=== PATIENT | female | born 1955 | race Caucasian/White ===

== ENCOUNTER 2018-05-12 18:33 | Inpatient (IN) | payer MEDICARE, BC ==
[~2018-05-12] VITALS: Ht 152.4 cm; Wt 43.7 kg
[2018-05-12] MEDS ORDERED: IV NORMAL SALINE 500 ML BAG IV ONE (19:00)
[2018-05-12] MEDS ORDERED: PROT946L GT (19:02)
[2018-05-12] MEDS ORDERED: ASCO500T10 GT (19:02)
[2018-05-12] MEDS ORDERED: ACET-2154 GT (19:02)
[2018-05-12] MEDS ORDERED: CITA10TA17 GT (19:02)
[2018-05-12] MEDS ORDERED: OXYC-128 GT (19:02)
[2018-05-12] MEDS ORDERED: INSU100I19 SQ (19:02)
[2018-05-12] MEDS ORDERED: CALC0.5C11 GT (19:02)
[2018-05-12] MEDS ORDERED: HEPA500034 SQ ×2 (19:02→20:47)
[2018-05-12] MEDS ORDERED: HYDR100T27 GT (19:02)
[2018-05-12] MEDS ORDERED: ZINC220C8 GT (19:02)
[2018-05-12] MEDS ORDERED: ATOR80TA GT (19:02)
[2018-05-12] MEDS ORDERED: VIT1TABL46 GT (19:02)
[2018-05-12] MEDS ORDERED: CALC-494 GT (19:02)
[2018-05-12] MEDS ORDERED: DOCU50LI GT (19:02)
[2018-05-12] MEDS ORDERED: LANS30CA56 GT (19:02)
[2018-05-12] MEDS ORDERED: BALS5OIN TP (19:02)
[2018-05-12] MEDS ORDERED: AMLO10TA7 GT (19:02)
--- NOTE | 2018-05-12 19:03 | NUR ---
PT IS IN ROOM #1B. DR STONER EVALUATED THE PT.
--- NOTE | 2018-05-12 19:04 | NUR ---
Dr. North speaking with Dr. Pham. Pt accepted for admission to [facility], diagnosis: severe anemia and renal failure.
[2018-05-12 19:13] LABS: BASOPHILS # (AUTO) 0.1 K/uL (0.0-8.0); EOSINOPHILS # (AUTO) 0.1 K/uL (0.0-0.7); EOSINOPHILS % (AUTO) 0.4 % (0.0-7.0); PLATELET COUNT (AUTO) 311 K/uL (179-408)
[2018-05-12 19:14] LABS: CREATININE 2.1 mg/dL (0.6-1.3); POTASSIUM 3.5 mmol/L (3.5-5.1)
[2018-05-12 19:15] LABS: BASOPHILS % (AUTO) 0.5 % (0.0-2.0); LYMPHOCYTES # (AUTO) 0.5 K/uL (20.0-40.0); MEAN CORPUSCULAR HEMOGLOBIN 29.9 uug (24.7-32.8); MEAN CORPUSCULAR HGB CONC 33 g/dL (32.3-35.6); MEAN CORPUSCULAR VOLUME 91.3 fL (75.5-95.3); MONOCYTES # (AUTO) 1.2 K/uL (2.0-10.0); MONOCYTES % (AUTO) 6.5 % (0.0-11.0); NEUTROPHILS # (AUTO) 16.3 K/uL (1.8-8.9); NEUTROPHILS % (AUTO) 89.6 % (38.5-71.5); WHITE BLOOD COUNT (AUTO) 18.2 K/uL (3.8-11.8)
[2018-05-12 19:19] LABS: BILIRUBIN,DIRECT 0.1 mg/dL (0.0-0.2); BILIRUBIN,TOTAL 0.3 mg/dL (0.2-1.0); TOTAL PROTEIN, SERUM 6.6 g/dL (6.4-8.2)
[2018-05-12 19:20] LABS: RED BLOOD CELL COUNT(AUTO) 2.22 MIL/uL (3.63-4.92)
[2018-05-12 19:21] LABS: HEMATOCRIT 20.3 % (31.2-41.9); HEMOGLOBIN 6.7 g/dL (10.9-14.3)
[2018-05-12 19:40] LABS: BAND % (MANUAL) 4 % (0-10); NEUTROPHILS % (MANUAL) 91 % (42-75)
[2018-05-12 19:41] LABS: LYMPHOCYTES % (MANUAL) 2 % (20-40); MONOCYTES % (MANUAL) 3 % (2-10)
--- NOTE | 2018-05-12 19:45 | NUR ---
Report given to Princess LYLE Tele.
[2018-05-12 20:15] VITALS: BP 115/49
[2018-05-12] MEDS ORDERED: OXYCODONE/APAP 5-325 MG TABLET GT PRN (20:30)
[2018-05-12] MEDS ORDERED: DOCUSATE SODIUM 100 MG/10 ML LIQUID UDC GT PRN (20:30)
--- NOTE | 2018-05-12 20:30 | NUR ---
RECEIVED PT FROM ER [facility]IA [facility]. DX:SEVERE ANEMIA/ RENAL FAILURE. UNDER THE CARE OF DR. PÉREZ. PT SHOWS NO SIGNS OF ACUTE DISTRESS. BELONGING LIST DONE. ADMISSION PROCESS AND CARE PLAN INITIATED. SENIOR CARE ASSESSMENT DONE. SAFETY AND COMFORT PROVIDED. WILL CONTINUE TO MONITOR.
[2018-05-12] MEDS ORDERED: OXYCODONE/APAP 5-325 MG TABLET PO PRN (20:45)
[2018-05-12] MEDS ORDERED: Medication Not On Formulary EA (Atorvastatin Calcium (Lipitor) 80 MG) GT SCH (21:00)
[2018-05-12] MEDS: ZINC SULFATE 220 MG CAPSULE GT SCH (21:54)
[2018-05-12] MEDS: ATORVASTATIN 40 MG TABLET GT SCH (21:54)
[2018-05-12] MEDS: hydrALAZINE HCL 50 MG TABLET GT SCH (21:54)
[2018-05-12] MEDS: HEPARIN SODIUM,PORCINE 5,000 UNITS/ML VIAL SQ SCH (21:58)
[2018-05-12] MEDS: INSULIN GLARGINE,HUM 300 UNITS/3 ML CARTRIDGE SQ SCH (22:08)
[2018-05-12] MEDS: NEPRO 1000 ML GT PRN (23:04)
[2018-05-12 23:56] VITALS: BP 111/40
[2018-05-13] VITALS (9 sets, daily range): BP systolic 112–124; BP diastolic 30–54
[2018-05-13] MEDS: hydrALAZINE HCL 50 MG TABLET GT SCH ×3 (05:43→22:00)
--- NOTE | 2018-05-13 06:17 | NUR ---
PT SLEPT THROUGHOUT THE SHIFT. PT SHOWS NO SIGNS OF DISTRESS. PT TOLERATED BLOOD TRANSFUSION. NO ADVERSE REACTION. PRESCRIBED MEDICATION GIVEN AND PT TOLERATED IT WELL. IV INTACT.G-TUBE FEEDING ONGOING AND PT TOLERATED IT WELL. PT TURNED AND REPOSITIONED. SAFETY AND COMFORT PROVIDED. WILL ENDORSE ACCORDINGLY TO INCOMING NURSE FOR CONTINUITY OF CARE.
[2018-05-13 06:34] LABS: BASOPHILS # (AUTO) 0.1 K/uL (0.0-8.0); BASOPHILS % (AUTO) 0.4 % (0.0-2.0); EOSINOPHILS # (AUTO) 0.1 K/uL (0.0-0.7); EOSINOPHILS % (AUTO) 0.4 % (0.0-7.0); HEMATOCRIT 24.3 % (31.2-41.9); HEMOGLOBIN 7.9 g/dL (10.9-14.3); LYMPHOCYTES # (AUTO) 0.5 K/uL (20.0-40.0); LYMPHOCYTES % (AUTO) 2.8 % (20.5-51.5); MEAN CORPUSCULAR HEMOGLOBIN 29.3 uug (24.7-32.8); MEAN CORPUSCULAR HGB CONC 33 g/dL (32.3-35.6); MEAN CORPUSCULAR VOLUME 89.8 fL (75.5-95.3); MONOCYTES # (AUTO) 0.9 K/uL (2.0-10.0); MONOCYTES % (AUTO) 5.4 % (0.0-11.0); NEUTROPHILS # (AUTO) 14.9 K/uL (1.8-8.9); PLATELET COUNT (AUTO) 297 K/uL (179-408); WHITE BLOOD COUNT (AUTO) 16.4 K/uL (3.8-11.8)
--- NOTE | 2018-05-13 07:00 | NUR ---
PATIENT IS SLEEPING IN BED, SHOWS NO SIGNS OF DISTRESS. IV INTACT.G-TUBE FEEDING IS OFF AT THE MOMENT. SAFETY AND COMFORT REINFORCED.
--- NOTE | 2018-05-13 07:42 | NUR ---
WOUND CARE CONSULT WOUND CARE RECEIVED CONSULT FOR EXISTING SACRAL WOUND. WOUND CARE WILL DEFER CONSULT AND TREATMENT PLANS TO PLASTIC SURGICAL TEAM WHO HAVE BEEN NOTIFIED OF THE CONSULT. PATIENT WITH EDNA AT 12, ALL PRESSURE ULCER PREVENTION MEASURES ARE NOTED TO BE IN PLACE AT THIS TIME. WILL SEE PRN.
[2018-05-13] MEDS ORDERED: Z GUARD REMEDY PASTE 57 GM TUBE TOP PRN (08:00)
[2018-05-13] MEDS ORDERED: Medication Not On Formulary EA (Protein Supplement (Promod) 30 ML) GT SCH (09:00)
[2018-05-13] MEDS ORDERED: Medication Not On Formulary EA (Calcitriol 0.5 MCG) GT SCH (09:00)
[2018-05-13] MEDS: AMLODIPINE 10 MG TABLET GT SCH (09:00)
[2018-05-13] MEDS ORDERED: EPOETIN ALFA 10,000 UNITS/ML VIAL IVP ONE (09:00)
[2018-05-13] MEDS ORDERED: Medication Not On Formulary EA (Lansoprazole 30 MG) GT SCH (09:00)
[2018-05-13] MEDS ORDERED: Medication Not On Formulary EA (Vit B Cmplx 3/Fa/Vit C/Biotin (Rena-Vite Rx Tablet) 1 EA GT SCH (09:00)
[2018-05-13] MEDS: CALCIUM CARBONATE 500 MG TABLET GT SCH (10:04)
[2018-05-13] MEDS: FOLIC ACID/VITAMIN B COMP W-C TABLET GT SCH (10:05)
[2018-05-13] MEDS: ASCORBIC ACID 500 MG TABLET GT SCH (10:05)
[2018-05-13] MEDS: PANTOPRAZOLE ORAL SUSPENSION 40 MG SUSPDR.PKT GT SCH (10:05)
[2018-05-13] MEDS: ZINC SULFATE 220 MG CAPSULE GT SCH ×2 (10:05→20:32)
[2018-05-13] MEDS: CITALOPRAM 10 MG TABLET GT SCH (10:06)
[2018-05-13] MEDS: PROTEIN SUPPLEMENT (PROSTAT) 30 ML LIQUID GT SCH ×3 (10:07→17:22)
[2018-05-13] MEDS: HEPARIN SODIUM,PORCINE 5,000 UNITS/ML VIAL SQ SCH ×2 (10:13→20:46)
[2018-05-13] MEDS: Z GUARD REMEDY PASTE 57 GM TUBE TOP SCH (10:17)
[2018-05-13] MEDS: CALCITRIOL 0.25 MCG CAPSULE GT SCH (10:34)
--- NOTE | 2018-05-13 13:38 | NUR ---
PATIENT HAD DIALYSIS THIS AM WITH OUTPUT 1500ML, TOLERATED WELL , NO DISTRESS, BP MEDICATION WAS HELD IN THE AM COLOSTOMY BAG IS CHANGED, SKIN CARE PROVIDED.
[2018-05-13] MEDS: ACETAMINOPHEN 325 MG TABLET GT PRN (18:32)
--- NOTE | 2018-05-13 18:59 | NUR ---
PATIENT IS RESTING IN BED, SKIN CARE ONE , MATRASS IN PLACE, WOUND COVERED AND CLEAN , TUBE FEEDING AT 55/HR IS GOING RIGHT NOW, GTUBE INTACT AND FLASHED TODAY W/O ANY RESIDUAL, LOW GRADE FEVER TREATED W/ TYLENOL SAFETY MAINTAINED
--- NOTE | 2018-05-13 19:30 | NUR ---
ALERT AWAKE, NO SOB NO CHEST PAIN, NO COMPLAIN OF PAIN AT THIS TIME. TX CONTINUE WOUNDS, COLOSTOMY BAG DRAINING WITH YELLOW SOFT BM WITH SOME GAS NOTED, PATIENT ANURIC, L THIGH CATH DRESSING INTACT. HOB ELEVATED, GTF TOLERATE WELL, NO RESIDUAL NOTED. TURN AND REPOSITION, KEPT COMFORTABLE.
[2018-05-13] MEDS: INSULIN GLARGINE,HUM 300 UNITS/3 ML CARTRIDGE SQ SCH (20:31)
[2018-05-13] MEDS: ATORVASTATIN 40 MG TABLET GT SCH (20:32)
[2018-05-14 00:09] VITALS: BP 126/53
[2018-05-14] MEDS: NEPRO 1000 ML GT PRN (00:12)
[2018-05-14] MEDS: hydrALAZINE HCL 50 MG TABLET GT SCH ×3 (05:04→21:38)
[2018-05-14 06:44] LABS: BASOPHILS % (AUTO) 0.2 % (0.0-2.0); EOSINOPHILS % (AUTO) 0.2 % (0.0-7.0); HEMATOCRIT 26.8 % (31.2-41.9); HEMOGLOBIN 8.7 g/dL (10.9-14.3); LYMPHOCYTES # (AUTO) 0.5 K/uL (20.0-40.0); LYMPHOCYTES % (AUTO) 3.4 % (20.5-51.5); MEAN CORPUSCULAR HEMOGLOBIN 29.3 uug (24.7-32.8); MEAN CORPUSCULAR HGB CONC 33 g/dL (32.3-35.6); MEAN CORPUSCULAR VOLUME 89.8 fL (75.5-95.3); MONOCYTES # (AUTO) 1.1 K/uL (2.0-10.0); MONOCYTES % (AUTO) 7.1 % (0.0-11.0); NEUTROPHILS # (AUTO) 13.5 K/uL (1.8-8.9); NEUTROPHILS % (AUTO) 89.1 % (38.5-71.5); PLATELET COUNT (AUTO) 315 K/uL (179-408); RED BLOOD CELL COUNT(AUTO) 2.98 MIL/uL (3.63-4.92); WHITE BLOOD COUNT (AUTO) 15.2 K/uL (3.8-11.8)
[2018-05-14 06:55] LABS: CREATININE 1.9 mg/dL (0.6-1.3); MAGNESIUM 1.8 mg/dL (1.8-2.4); PHOSPHOROUS 1.4 mg/dL (2.5-4.9); POTASSIUM 4.1 mmol/L (3.5-5.1)
--- NOTE | 2018-05-14 07:07 | NUR ---
PLACE A CALL TO DR. NICOLE REGARDING ABNORMAL GLUCOSE LEVEL OF 308. LEFT A MESSAGE, ENDORSED TO NEXT SHIFT. PATIENT HOB ELEVATED NO SOB NO CHEST PAIN TURN AND REPOSITION, COLOSTOMY BAG PATENT DRAINING WITH SOFT YELLOW COLOR FECES, R THIGH CATHETER DRESSING INTACT, TX DONE ON SACRUM WOUND. NO COMPLAIN OF PAIN AT THIS TIME. KEPT COMFORTABLE.
[2018-05-14 08:00] VITALS: BP 128/61
--- NOTE | 2018-05-14 08:38 | NUR ---
Received a telephone order from Dr. Francis for Accu checks Q6hrs with mild sliding scale. Order carried out.
[2018-05-14] MEDS ORDERED: DEXTROSE 50% 50 ML DISP.SYRIN IV PRN ×2 (08:45)
[2018-05-14] MEDS ORDERED: INSULIN REGULAR, HUMAN 300 UNIT/3 ML VIAL SQ PRN (08:45)
[2018-05-14] MEDS: FOLIC ACID/VITAMIN B COMP W-C TABLET GT SCH (09:05)
[2018-05-14] MEDS: ZINC SULFATE 220 MG CAPSULE GT SCH ×2 (09:05→20:31)
[2018-05-14] MEDS: CITALOPRAM 10 MG TABLET GT SCH (09:05)
[2018-05-14] MEDS: ASCORBIC ACID 500 MG TABLET GT SCH (09:06)
[2018-05-14] MEDS: AMLODIPINE 10 MG TABLET GT SCH (09:06)
[2018-05-14] MEDS: CALCIUM CARBONATE 500 MG TABLET GT SCH (09:06)
[2018-05-14] MEDS: CALCITRIOL 0.25 MCG CAPSULE GT SCH (09:07)
[2018-05-14] MEDS: PANTOPRAZOLE ORAL SUSPENSION 40 MG SUSPDR.PKT GT SCH (09:07)
[2018-05-14] MEDS: Z GUARD REMEDY PASTE 57 GM TUBE TOP SCH (09:08)
[2018-05-14] MEDS: HEPARIN SODIUM,PORCINE 5,000 UNITS/ML VIAL SQ SCH ×2 (09:12→20:33)
[2018-05-14] MEDS: PROTEIN SUPPLEMENT (PROSTAT) 30 ML LIQUID GT SCH ×3 (09:26→16:44)
--- NOTE | 2018-05-14 09:45 | NUR ---
Patient is in bed, low grade fever, respiration rate is increased. G-tube feeding is at 55ml/hr, tolerating well with no residual. Comfort and safety provided, will continue to monitor.
[2018-05-14] MEDS ORDERED: BLOOD SUGAR DIAGNOSTIC 1 EACH STRIP VI SCH (11:30)
[2018-05-14 12:00] VITALS: BP 117/49
[2018-05-14] MEDS: BLOOD SUGAR DIAGNOSTIC 1 EACH STRIP VI SCH ×2 (12:59→18:23)
[2018-05-14] MEDS: INSULIN REGULAR, HUMAN 300 UNIT/3 ML VIAL SQ PRN ×2 (13:25→18:25)
[2018-05-14] MEDS ORDERED: NEUTRA PHOS PACKET GT ONE (15:15)
[2018-05-14 16:36] VITALS: BP 120/59
[2018-05-14 20:00] VITALS: BP 120/43
[2018-05-14] MEDS: ATORVASTATIN 40 MG TABLET GT SCH (20:32)
[2018-05-14] MEDS: ACETAMINOPHEN 325 MG TABLET GT PRN (20:32)
[2018-05-14] MEDS: INSULIN GLARGINE,HUM 300 UNITS/3 ML CARTRIDGE SQ SCH (20:35)
[2018-05-14 21:00] VITALS: BP 120/49
[2018-05-14] MEDS ORDERED: VANCOMYCIN IV 200 ML IV SCH (21:00)
[2018-05-14] MEDS ORDERED: MEROPENEM 500 MG in IV NORMAL SALINE 50 ML IV SCH (21:00)
[2018-05-14] MEDS ORDERED: MEROPENEM 500 MG VIAL IV ONE (21:43)
[2018-05-15] VITALS: BP 129/42
[2018-05-15] MEDS: BLOOD SUGAR DIAGNOSTIC 1 EACH STRIP VI SCH ×4 (00:10→12:38)
[2018-05-15] MEDS: INSULIN REGULAR, HUMAN 300 UNIT/3 ML VIAL SQ PRN ×2 (00:14→06:20)
--- NOTE | 2018-05-15 00:30 | NUR ---
Patient was started on empiric meropenem and vanco IV, by the [employer] APPRAISER. Fever is controlled with tylenol. Was put o 2L O2 via NC due to SpO2 below 90%Colostomy bag was changed, 50-100ml of liquid stool, stoma looks healthy, wound care was done on the sacrum, repositioned, linen changed, tolerated well. Sleeps intermittently. Comfort and safety provided. Continuing to monitor.
[2018-05-15] MEDS ORDERED: VANCOMYCIN IV 1 G in PREMIXED 0 EACH IV ONE (02:00)
[2018-05-15] MEDS ORDERED: VANCOMYCIN IV 200 ML ONE (02:35)
[2018-05-15 04:00] VITALS: BP 152/51
[2018-05-15] MEDS: hydrALAZINE HCL 50 MG TABLET GT SCH ×3 (06:03→21:07)
--- NOTE | 2018-05-15 06:48 | NUR ---
patient did not sleep most of the night. Complained of ankle pain around 0630, repositioned, and changed linens. Denies pain now. No BM and no urine output at this time. No residual from G-tube. Feeding is on hold from 0600 until 1000. New IV is on the right hand, left shoulder IV was removed due to poor performance.
[2018-05-15] MEDS: Z GUARD REMEDY PASTE 57 GM TUBE TOP SCH (09:00)
--- NOTE | 2018-05-15 09:00 | NUR ---
currently under dialysis will give am meds when dialysis complete
--- NOTE | 2018-05-15 09:45 | NUR ---
CLINICAL PHARMACY NOTE: VANCOMYCIN PHARMACY TO DOSE Subjective: To start vancomycin in this 62y/o female for indication of "documented infection" (no md note yet) Objective: weight 42kg height 152cm BMI 18 BUN 58 (05/14) Scr 1.9 (05/14, on HD) 15.2 (05/14) temp 98.5 1gm x 1 vanco given in ER today 05/15 @ 0239 Assessment/Plan Patient is on HD, will follow HD schedule to dose accordingly. As one dose already given for today, no further dose will be given. Next pre-HD level will be tomorrow morning in the case there is dialysis later in day. Will dose accordingly. Will follow
[2018-05-15] MEDS: CITALOPRAM 10 MG TABLET GT SCH (11:17)
[2018-05-15] MEDS: FOLIC ACID/VITAMIN B COMP W-C TABLET GT SCH (11:17)
[2018-05-15] MEDS: AMLODIPINE 10 MG TABLET GT SCH (11:18)
[2018-05-15] MEDS: CALCIUM CARBONATE 500 MG TABLET GT SCH (11:18)
[2018-05-15] MEDS: PANTOPRAZOLE ORAL SUSPENSION 40 MG SUSPDR.PKT GT SCH (11:18)
[2018-05-15] MEDS: CALCITRIOL 0.25 MCG CAPSULE GT SCH (11:19)
[2018-05-15] MEDS: ZINC SULFATE 220 MG CAPSULE GT SCH ×2 (11:19→20:49)
[2018-05-15] MEDS: ASCORBIC ACID 500 MG TABLET GT SCH (11:19)
[2018-05-15] MEDS: MEROPENEM 500 MG in IV NORMAL SALINE 50 ML IV SCH ×2 (11:20→20:49)
[2018-05-15] MEDS: HEPARIN SODIUM,PORCINE 5,000 UNITS/ML VIAL SQ SCH ×2 (11:21→21:02)
[2018-05-15] MEDS: PROTEIN SUPPLEMENT (PROSTAT) 30 ML LIQUID GT SCH ×3 (11:24→16:52)
[2018-05-15 11:39] VITALS: BP 110/70
[2018-05-15 15:10] VITALS: BP 146/55
--- NOTE | 2018-05-15 19:38 | NUR ---
Received patient awake in bed, not in any form of distress. Patient has oxygen support at 2lpm via nasal cannula, tolerated. With g-tube to ongoing feeding, no residuals noted. With colostomy bag, in place. Noted with IV access on the right forearm, 20g, patent and intact. Patient has a reynold catheter on the left groin with dressing, clean and dry. Noted air mattress and SCD foot pumps in place, maintained. Head of bed maintained at 30degrees elevation, locked, side rails up x 2. Ensured safety and comfort. Noise and lights subdued. Will continue to monitor.
[2018-05-15] MEDS: ATORVASTATIN 40 MG TABLET GT SCH (20:49)
[2018-05-15 20:51] VITALS: BP 144/59
[2018-05-15] MEDS: INSULIN GLARGINE,HUM 300 UNITS/3 ML CARTRIDGE SQ SCH (21:03)
[2018-05-16] MEDS: BLOOD SUGAR DIAGNOSTIC 1 EACH STRIP VI SCH ×4 (00:02→17:22)
[2018-05-16 00:29] VITALS: BP 147/61
[2018-05-16 05:15] VITALS: BP 129/49
[2018-05-16] MEDS: hydrALAZINE HCL 50 MG TABLET GT SCH ×3 (05:24→21:13)
[2018-05-16] MEDS: INSULIN REGULAR, HUMAN 300 UNIT/3 ML VIAL SQ PRN ×2 (05:31→17:27)
--- NOTE | 2018-05-16 06:18 | NUR ---
Patient slept intermittently throughout the night. Patient still with oxygen support at 2lpm via nasal cannula, tolerated. With g-tube to ongoing feeding, no residuals noted. With colostomy bag, in place, intact. Noted with IV access on the right forearm, 20g, patent and intact. Patient has a permacatheter on the left groin with dressing, clean and dry. Noted air mattress and SCD foot pumps in place, maintained. Head of bed maintained at 30degrees elevation. Ensured safety and comfort.
[2018-05-16 06:41] LABS: BASOPHILS # (AUTO) 0.1 K/uL (0.0-8.0); BASOPHILS % (AUTO) 0.6 % (0.0-2.0); EOSINOPHILS # (AUTO) 0.1 K/uL (0.0-0.7); HEMATOCRIT 26.4 % (31.2-41.9); HEMOGLOBIN 8.4 g/dL (10.9-14.3); LYMPHOCYTES # (AUTO) 0.4 K/uL (20.0-40.0); MEAN CORPUSCULAR HGB CONC 32 g/dL (32.3-35.6); MEAN CORPUSCULAR VOLUME 91.6 fL (75.5-95.3); MONOCYTES # (AUTO) 0.9 K/uL (2.0-10.0); MONOCYTES % (AUTO) 7.3 % (0.0-11.0); NEUTROPHILS # (AUTO) 10.9 K/uL (1.8-8.9); NEUTROPHILS % (AUTO) 88.1 % (38.5-71.5); PLATELET COUNT (AUTO) 292 K/uL (179-408); RED BLOOD CELL COUNT(AUTO) 2.88 MIL/uL (3.63-4.92); WHITE BLOOD COUNT (AUTO) 12.4 K/uL (3.8-11.8)
[2018-05-16 07:04] LABS: BILIRUBIN,TOTAL 0.3 mg/dL (0.2-1.0); MAGNESIUM 1.8 mg/dL (1.8-2.4); PHOSPHOROUS 1.6 mg/dL (2.5-4.9); TOTAL PROTEIN, SERUM 6.5 g/dL (6.4-8.2); VANCOMYCIN,RANDOM 16.2 ug/mL (18.0-26.0)
[2018-05-16] MEDS: ZINC SULFATE 220 MG CAPSULE GT SCH ×2 (08:24→20:54)
[2018-05-16] MEDS: PANTOPRAZOLE ORAL SUSPENSION 40 MG SUSPDR.PKT GT SCH (08:24)
[2018-05-16] MEDS: FOLIC ACID/VITAMIN B COMP W-C TABLET GT SCH (08:24)
[2018-05-16] MEDS: CITALOPRAM 10 MG TABLET GT SCH (08:24)
[2018-05-16] MEDS: CALCIUM CARBONATE 500 MG TABLET GT SCH (08:25)
[2018-05-16] MEDS: ASCORBIC ACID 500 MG TABLET GT SCH (08:25)
[2018-05-16] MEDS: CALCITRIOL 0.25 MCG CAPSULE GT SCH (08:25)
[2018-05-16] MEDS: HEPARIN SODIUM,PORCINE 5,000 UNITS/ML VIAL SQ SCH ×2 (08:28→20:58)
[2018-05-16] MEDS: Z GUARD REMEDY PASTE 57 GM TUBE TOP SCH (08:28)
[2018-05-16] MEDS: PROTEIN SUPPLEMENT (PROSTAT) 30 ML LIQUID GT SCH ×3 (08:28→17:20)
[2018-05-16] MEDS: AMLODIPINE 10 MG TABLET GT SCH (08:29)
[2018-05-16] MEDS: MEROPENEM 500 MG in IV NORMAL SALINE 50 ML IV SCH ×2 (09:11→20:54)
--- NOTE | 2018-05-16 09:45 | NUR ---
[facility] MANAGER HERE AND STATED THAT SHE WANTS TO DO A DEBRIDEMENT ON THE PATIENT AND NEEDED A CONSCENT PATIENT IS UNABLE TO SIGN SO I CALLED THE PATIENTS SON JAKE AND HIS JENI UNABLE TO REACH ANYONE ON THE PHONE LEFT A MESSAGE AWAITING FOR RETURN CALL.
--- NOTE | 2018-05-16 11:11 | NUR ---
CLINICAL PHARMACY NOTE: VANCOMYCIN PHARMACY TO DOSE Subjective: To continue vancomycin in this 62y/o female for indication of "documented infection" (Leukocytosis- MD note in draft) Objective: weight 42kg height 152cm BMI 18 BUN 48 Scr 2.0 (on HD) WBC 12.4 temp 98.6 Assessment/Plan Patient is on HD, will follow HD schedule to dose accordingly. NO HD as has been scheduled for today per dialysis nurse, thus, no dose shall be due today. Will continue to dose as per pre-HD level. Will follow
--- NOTE | 2018-05-16 11:30 | NUR ---
PATIENTS DAUGHTER IN LAW RETURNED CALL AND GAVE CONSCENT FOR THE DEBRIDEMENT WITHNESSED BY TWO NURSES AND DOCUMENTED.
[2018-05-16 12:00] VITALS: BP 115/51
[2018-05-16] MEDS: ACETAMINOPHEN 325 MG TABLET GT PRN (13:54)
--- NOTE | 2018-05-16 14:00 | NUR ---
NOTED RESTLESSNESS AND FACIAL GRIMACING MEDICATED WITH TYLENOL TURNED AND REPOSITIONED NAD MADE COMFORTABLE WILL CONTINUE TO OBSERVE PATIENT.
[2018-05-16] MEDS: NEPRO 1000 ML GT PRN (14:13)
[2018-05-16] MEDS ORDERED: NEUTRA PHOS PACKET PO ONE (15:15)
[2018-05-16 16:16] VITALS: BP 120/47
--- NOTE | 2018-05-16 17:00 | NUR ---
PATIENT SEEN AND EXAMINED BY DR ADAMSON WITH NEW ORDERS AND NOTED
[2018-05-16 19:44] VITALS: BP 102/43
--- NOTE | 2018-05-16 19:45 | NUR ---
PATIENT AWAKE NO SOB NO CHEST PAIN, HOB ELEVATED, ON 3LPM NC OXYGEN, SAT WNL, ON GTF TOLERATE WELL NO NAUSEA NO VOMITING, NO RESIDUAL. TURN AND REPOSITION Q 2 HOURS, COLOSTOMY BAG DRAINING WITH SOFT YELLOW COLOR FECES IN MODERATE AMOUNT. PATIENT HAS NO COMPLAIN OF PAIN AT THIS TIME. CONT TO MONITOR.
[2018-05-16] MEDS: ATORVASTATIN 40 MG TABLET GT SCH (20:54)
[2018-05-16] MEDS: INSULIN GLARGINE,HUM 300 UNITS/3 ML CARTRIDGE SQ SCH (21:12)
[2018-05-17] MEDS: BLOOD SUGAR DIAGNOSTIC 1 EACH STRIP VI SCH ×4 (00:26→17:56)
[2018-05-17] MEDS: INSULIN REGULAR, HUMAN 300 UNIT/3 ML VIAL SQ PRN ×2 (00:33→05:58)
[2018-05-17 04:30] VITALS: BP 155/54
[2018-05-17] MEDS: hydrALAZINE HCL 50 MG TABLET GT SCH ×2 (05:45→14:23)
--- NOTE | 2018-05-17 06:44 | NUR ---
pt slept well through the night and was easily awoken, pt denies having any pain or difficulty breathing. pt has slightly elevated Bp in the morning, scheduled medication was given. pt's gtube sight is dry clean and intact, wound dressing is dry clean and intact, pt repositioned during the night, all needs met safety measures are in place, call light within reach, bed alarm is on.
--- NOTE | 2018-05-17 07:05 | NUR ---
patient laying in bed comfortably, no s/s of acute distress noted and no c/o pain at this time. patient's on gtube is dry clean and intact, wound dressing is dry clean and intact, all needs met safety measures are in place, call light within reach, bed alarm is on.
[2018-05-17] MEDS: AMLODIPINE 10 MG TABLET GT SCH (08:51)
[2018-05-17] MEDS: CITALOPRAM 10 MG TABLET GT SCH (08:51)
[2018-05-17] MEDS: CALCIUM CARBONATE 500 MG TABLET GT SCH (08:52)
[2018-05-17] MEDS: PANTOPRAZOLE ORAL SUSPENSION 40 MG SUSPDR.PKT GT SCH (08:52)
[2018-05-17] MEDS: ASCORBIC ACID 500 MG TABLET GT SCH (08:52)
[2018-05-17] MEDS: ZINC SULFATE 220 MG CAPSULE GT SCH (08:52)
[2018-05-17] MEDS: FOLIC ACID/VITAMIN B COMP W-C TABLET GT SCH (08:52)
[2018-05-17] MEDS: CALCITRIOL 0.25 MCG CAPSULE GT SCH (08:53)
[2018-05-17] MEDS: MEROPENEM 500 MG in IV NORMAL SALINE 50 ML IV SCH (09:02)
[2018-05-17] MEDS: HEPARIN SODIUM,PORCINE 5,000 UNITS/ML VIAL SQ SCH (09:03)
[2018-05-17] MEDS: Z GUARD REMEDY PASTE 57 GM TUBE TOP SCH (09:04)
[2018-05-17] MEDS: PROTEIN SUPPLEMENT (PROSTAT) 30 ML LIQUID GT SCH ×3 (09:04→17:51)
[2018-05-17 11:28] LABS: CREATININE 2.6 mg/dL (0.6-1.3); PHOSPHOROUS 2.1 mg/dL (2.5-4.9); POTASSIUM 4.3 mmol/L (3.5-5.1)
--- NOTE | 2018-05-17 12:06 | NUR ---
CLINICAL PHARMACY NOTE: VANCOMYCIN PHARMACY TO DOSE Subjective: To continue vancomycin in this 62y/o female for indication of "documented infection" (sepsis, HCAP- per ID note) Objective: weight 42kg height 152cm BMI 18 BUN 79 Scr 2.6 (on HD) WBC 12.4 (05/16) temp 97.2 Vanco pre-HD level: 14 Assessment/Plan Patient is on HD, will follow HD schedule to dose accordingly. HD has been scheduled for today per dialysis nurse. Since vanco pre-HD level is 14 mcg/ml, will give vanco 750 mg IVPB x1 today post HD. Will continue too dose as per pre-HD level. Will follow
[2018-05-17] MEDS ORDERED: GENT70PI2 IV (12:11)
[2018-05-17] MEDS ORDERED: VANCOMYCIN IV 750 MG in IV DEXTROSE 5% 250 ML IV ONE (14:00)
[2018-05-17] MEDS: NEPRO 1000 ML GT PRN (14:03)
[2018-05-17 14:23] VITALS: BP 162/62
--- NOTE | 2018-05-17 18:50 | NUR ---
patient laying in bed comfortably, no s/s of acute distress noted and no c/o pain at this time. patient's on gtube , intact and patent, wound dressing is dry clean and intact, all needs met safety measures are in place, call light within reach, bed alarm is on.
--- NOTE | 2018-05-17 19:31 | NUR ---
patient discharge to [facility] [place] via ambulance with 2 emt, patient alert and oriented x2, discharge instruction given to patient and able to verbalized understanding that she will be discharge to [facility] [place], no s/s of acute distress noted, no c/o pain at this time. iv not removed due to continuation of use at the facility, gtube intact. belongings accounted for. questions and concerns addressed.
== END 2018-05-17 19:31 | DRG 291 ==
LOC: ER 18:34 → TELE3 19:51 → MEDSURG3 05-16 15:00
PROVIDERS: ADMIT Internal Medicine Nephrology; ATTEND Internal Medicine Nephrology
PROC: 30233N1 Transfusion of Nonautologous Red Blood Cells into Peripheral Vein, Percutaneous Approach (ICD-10-PCS; principal; 2018-05-13)
PROC: 5A1D70Z Performance of Urinary Filtration, Intermittent, Less than 6 Hours Per Day (ICD-10-PCS; 2018-05-13)
DX: I13.2 Hypertensive heart and chronic kidney disease with heart failure and with stage 5 chronic kidney disease, or end stage renal disease (principal); L89.154 Pressure ulcer of sacral region, stage 4; L89.324 Pressure ulcer of left buttock, stage 4; L89.314 Pressure ulcer of right buttock, stage 4; N18.6 End stage renal disease; R53.2 Functional quadriplegia; J15.9 Unspecified bacterial pneumonia; E43 Unspecified severe protein-calorie malnutrition; G93.40 Encephalopathy, unspecified; Z68.1 Body mass index [BMI] 19.9 or less, adult; I50.32 Chronic diastolic (congestive) heart failure; D63.1 Anemia in chronic kidney disease; E11.22 Type 2 diabetes mellitus with diabetic chronic kidney disease; Z99.2 Dependence on renal dialysis; R13.10 Dysphagia, unspecified; Z93.1 Gastrostomy status; Z79.4 Long term (current) use of insulin; E78.5 Hyperlipidemia, unspecified; K21.9 Gastro-esophageal reflux disease without esophagitis; Z96.649 Presence of unspecified artificial hip joint; M89.8X9 Other specified disorders of bone, unspecified site; M24.552 Contracture, left hip; M24.551 Contracture, right hip
CPT/HCPCS: 36415; 70030-TC; 71045; 83690; 83735; 84100; 85025; 85730; 86850; 86900; 86901; 86920; 87040; 87077; 90937; 93005; A4217; A4663; G0378; J0885; J1644; J1815; J2185; J3370; J3490; J7050; J7060; P9016-BL; P9021